=== PATIENT | male | born 1965 | race Two or more races ===

== ENCOUNTER 2017-05-28 23:49 | Inpatient (IN) | payer MEDICAID ==
[~2017-05-28] VITALS: Ht 170.2 cm; Wt 56.9 kg
[2017-05-28 22:20] VITALS: BP 105/63
[2017-05-29] MEDS ORDERED: HYDROcodone-ACET 10/325MG TAB PO PRN
[2017-05-29] MEDS ORDERED: NITROGLYCERIN 0.4 MG SL TAB SL PRN
[2017-05-29] MEDS ORDERED: DEXTROSE (50%) 50ML SYRG IV PRN
[2017-05-29] MEDS ORDERED: MORPHINE SULFATE 4 MG/ML SYR/VIAL IV PRN
[2017-05-29] MEDS ORDERED: METO25TA62 PO (00:16)
[2017-05-29] MEDS ORDERED: METF-370 PO (00:16)
[2017-05-29 01:05] VITALS: BP 105/63
[2017-05-29 01:09] LABS: Urine Bacteria NONE SEEN /hpf (None Seen); Urine Blood Negative /uL (Negative); Urine Specific Gravity 1.017 (1.001-1.035); Urine WBC 1 /hpf (0 - 3)
[2017-05-29 05:53] LABS: Basophils # (auto) 0 uL; Basophils % (auto) 0.3 % (0.0-2.0); Eosinophils # (auto) 0.1 uL; Eosinophils % (auto) 1.1 % (0.0-7.0); Hematocrit 36.6 % (41.0-53.0); Hemoglobin 12.4 g/dL (13.5-17.5); Lymphocytes # (auto) 1.6 uL; Lymphocytes % (auto) 30.2 % (10.0-50.0); Mean Corpuscular Hemoglobin 28.2 pg (28.0-32.0); Mean Corpuscular Volume 83.1 fL (80.0-100.0); Monocytes # (auto) 0.4 uL; Monocytes % (auto) 7.3 % (0.0-12.0); Neutrophils # (auto) 3.2 uL; Neutrophils % (auto) 61.1 % (37.0-80.0); Nucleated Red Blood Cells % 0.1 %; Platelet Count (auto) 187 10^3/uL (140-450); Red Cell Distribution Width 14.1 % (11.8-14.3); White Blood Cell 5.2 10^3/uL (4.4-10.8)
[2017-05-29 05:54] VITALS: BP 100/68
[2017-05-29 05:56] LABS: INR 0.97 (0.9-1.15); Partial Thromboplastin Time 29.2 sec (22.64-33.71); Prothrombin Time 10.6 sec (9.37-12.3)
[2017-05-29 06:07] LABS: Albumin 2.9 g/dL (3.4-5.0); BUN/Creatinine Ratio 21.1; Bilirubin, Total 0.4 mg/dL (0.2-1.0); Calcium 8.2 mg/dL (8.5-10.1); Potassium 4.5 mmol/L (3.5-5.1); Total Protein 7.1 g/dL (6.4-8.2)
[2017-05-29] MEDS: ACCU-CHEK COMFORT CURVE STRIP VI SCH ×4 (06:16→21:35)
[2017-05-29] MEDS: InsuLIN REG 1unit/0.01ml Soln (100units/ml) SC SCH ×4 (06:17→21:34)
[2017-05-29] MEDS: NICOTINE 21MG/24 HR TOPICAL PATCH TD SCH (09:30)
[2017-05-29] MEDS: ENOXAPARIN SOD 40 MG/0.4 ML SYRINGE SC SCH (09:31)
[2017-05-29] MEDS: OSELTAMIVIR 75 MG CAP PO SCH ×2 (09:31→21:24)
[2017-05-29] MEDS: ASCORBIC ACID 500 MG TAB PO SCH (09:32)
[2017-05-29 12:00] VITALS: BP 101/66
[2017-05-29] MEDS ORDERED: LIDOCAINE 2%HCL (LOCAL ANESTH.) INJ 20ML MDV ONE (12:52)
[2017-05-29] MEDS ORDERED: IOHEXOL 350 MG/ML 100ML IJ ONE (12:52)
[2017-05-29] MEDS ORDERED: ANGIOMAX 250 MG VIAL IV ONE (13:26)
[2017-05-29] MEDS ORDERED: fentaNYL CITRATE 100 MCG/2 ML VL ONE (13:26)
[2017-05-29] MEDS ORDERED: MIDAZOLAM HCL 1MG/1ML-2 ML VIAL ONE (13:26)
[2017-05-29 17:00] VITALS: BP 118/78
[2017-05-29] MEDS ORDERED: METOPROLOL SUCCINATE XL 50 MG TAB PO SCH (22:00)
[2017-05-29] MEDS ORDERED: ATORVASTATIN 20 MG TAB PO SCH (22:00)
[2017-05-29 22:10] VITALS: BP 104/67
[2017-05-30 05:15] VITALS: BP 111/73
[2017-05-30 06:34] LABS: Basophils # (auto) 0 uL; Basophils % (auto) 0.3 % (0.0-2.0); Eosinophils # (auto) 0.1 uL; Eosinophils % (auto) 1.4 % (0.0-7.0); Hematocrit 38.8 % (41.0-53.0); Hemoglobin 13.1 g/dL (13.5-17.5); Lymphocytes # (auto) 1.5 uL; Lymphocytes % (auto) 27.8 % (10.0-50.0); Mean Corpuscular Hemoglobin 27.9 pg (28.0-32.0); Mean Corpuscular Hgb Conc. 33.8 g/dL (32.0-36.0); Mean Corpuscular Volume 82.7 fL (80.0-100.0); Monocytes # (auto) 0.4 uL; Monocytes % (auto) 7.6 % (0.0-12.0); Neutrophils # (auto) 3.4 uL; Neutrophils % (auto) 62.9 % (37.0-80.0); Nucleated Red Blood Cells % 0.1 %; Platelet Count (auto) 247 10^3/uL (140-450); Red Blood Cells 4.69 10^6/uL (4.5-5.90); Red Cell Distribution Width 13.9 % (11.8-14.3); White Blood Cell 5.4 10^3/uL (4.4-10.8)
[2017-05-30 06:45] LABS: Calcium 8.6 mg/dL (8.5-10.1); Magnesium 2.2 mg/dL (1.6-2.6); Potassium 4.4 mmol/L (3.5-5.1)
[2017-05-30] MEDS: ACCU-CHEK COMFORT CURVE STRIP VI SCH ×2 (06:52→11:30)
[2017-05-30] MEDS: InsuLIN REG 1unit/0.01ml Soln (100units/ml) SC SCH ×2 (06:52→12:15)
[2017-05-30 08:30] VITALS: BP 102/66
[2017-05-30 08:40] VITALS: BP 102/66
[2017-05-30] MEDS: ENOXAPARIN SOD 40 MG/0.4 ML SYRINGE SC SCH (08:53)
[2017-05-30] MEDS: NICOTINE 21MG/24 HR TOPICAL PATCH TD SCH (08:53)
[2017-05-30] MEDS: ASCORBIC ACID 500 MG TAB PO SCH (08:53)
[2017-05-30] MEDS: OSELTAMIVIR 75 MG CAP PO SCH (08:53)
[2017-05-30 12:00] VITALS: BP 102/70
[2017-05-30 13:16] VITALS: BP 102/70
== END 2017-05-30 14:12 | disposition home or self-care (01) | DRG 192 ==
LOC: TELE-WESTW 23:49
PROVIDERS: ADMIT Nurse Practitioner Family; ATTEND Internal Medicine
PROC: 4A023N7 Measurement of Cardiac Sampling and Pressure, Left Heart, Percutaneous Approach (ICD-10-PCS; principal; 2017-05-29)
PROC: B2111ZZ Fluoroscopy of Multiple Coronary Arteries using Low Osmolar Contrast (ICD-10-PCS; 2017-05-29)
PROC: B2151ZZ Fluoroscopy of Left Heart using Low Osmolar Contrast (ICD-10-PCS; 2017-05-29)
PROC: B41F1ZZ Fluoroscopy of Right Lower Extremity Arteries using Low Osmolar Contrast (ICD-10-PCS; 2017-05-29)
DX: R07.89 Other chest pain (principal); E44.0 Moderate protein-calorie malnutrition; E11.9 Type 2 diabetes mellitus without complications; I10 Essential (primary) hypertension; E78.5 Hyperlipidemia, unspecified; G89.4 Chronic pain syndrome; Z87.891 Personal history of nicotine dependence
CPT/HCPCS: 93458; G0278; 36415; 71045; 80048; 80053; 80061; 81001; 82962; 83036; 83735; 85025; 85610; 85730; 86850; 86900; 86901; 87081; 87804; 93005; 99152; J1815; J2250

== ENCOUNTER 2022-05-21 06:41 | Day surgery (SDC) | payer OTHER ==
[2022-05-21] VITALS (7 sets, daily range): BP systolic 121–132; BP diastolic 75–85
[~2022-05-21] VITALS: Ht 170.2 cm; Wt 73.9 kg
[~2022-05-21 06:41] MED LIST: ASPI-543 PO; CHOL200031 PO; ESCI-28 PO; INSLANTI SC; METF-370 PO; METO25TA93 PO; PANT40T PO
[2022-05-21] MEDS ORDERED: LIDOCAINE 2%HCL (LOCAL ANESTH.) INJ 20ML MDV ONE (08:52)
[2022-05-21] MEDS ORDERED: IODIXANOL 320MG/ML 100ML BTL IV ONE ×2 (08:52→09:06)
[2022-05-21] MEDS ORDERED: ANGIOMAX 250 MG VIAL IV ONE (08:58)
[2022-05-21] MEDS ORDERED: SODIUM CHL 0.9% 0 ML ONE (08:59)
[2022-05-21] MEDS ORDERED: fentaNYL CITRATE 100 MCG/2 ML VL ONE (08:59)
[2022-05-21] MEDS ORDERED: MIDAZOLAM HCL 2MG/2ML 2ml VIAL (1mg/ml) ONE (08:59)
[2022-05-21] MEDS ORDERED: VERAPAMIL 2.5MG/ML INJ 2ML VIAL IV ONE (08:59)
[2022-05-21] MEDS ORDERED: HEPARIN SODIUM (PORCINE) 5000 UNITS/ML 1ML VIAL ONE (08:59)
== END 2022-05-21 12:10 | disposition home or self-care (01) ==
LOC: CATH 06:41
PROVIDERS: ATTEND Internal Medicine
DX: R94.39 Abnormal result of other cardiovascular function study (principal); I25.118 Atherosclerotic heart disease of native coronary artery with other forms of angina pectoris; I10 Essential (primary) hypertension; E11.9 Type 2 diabetes mellitus without complications; Z79.890 Hormone replacement therapy; Z79.899 Other long term (current) drug therapy; Z79.4 Long term (current) use of insulin; Z20.822 Contact with and (suspected) exposure to COVID-19
CPT/HCPCS: 93458; C1769; C1887; C1894; J1644; J2250; J3010; Q9967; U0003; 99152

== ENCOUNTER 2023-09-02 07:17 | Day surgery (SDC) | payer OTHER ==
[2023-08-28 12:36] LABS: Urine Bacteria None Seen /hpf (None Seen)
[2023-08-28 12:40] LABS: Basophils # (auto) 0 10 ^3/uL (0-0.2); Basophils % (auto) 0.7 % (0.0-2.0); Eosinophils # (auto) 0.3 10 ^3/uL (0-0.8); Eosinophils % (auto) 4.3 % (0.0-7.0); Hematocrit 44.4 % (41.0-53.0); Hemoglobin 14.7 g/dL (13.5-17.5); Lymphocytes # (auto) 1.6 10 ^3/uL (0.4-5.4); Lymphocytes % (auto) 26.1 % (10.0-50.0); Mean Corpuscular Hemoglobin 28.3 pg (28.0-32.0); Mean Corpuscular Hgb Conc. 33.1 g/dL (32.0-36.0); Mean Corpuscular Volume 85.5 fL (80.0-100.0); Monocytes # (auto) 0.4 10 ^3/uL (0-1.3); Monocytes % (auto) 6.6 % (0.0-12.0); Neutrophils # (auto) 3.9 10 ^3/uL (1.6-8.6); Neutrophils % (auto) 62.3 % (37.0-80.0); Red Blood Cells 5.19 10^6/uL (4.5-5.90); Red Cell Distribution Width 13.8 % (11.8-14.3); White Blood Cell 6.2 10^3/uL (4.4-10.8)
[2023-08-28 12:46] LABS: Urine Blood Negative /uL (Negative); Urine Clarity Clear (Clear); Urine Color Light-Yellow (Yellow); Urine Protein, UAD Negative (Negative); Urine Specific Gravity 1.027 (1.001-1.035); Urine Urobilinogen Normal (Negative); Urine WBC 1 /hpf (0 - 3); Urine pH 5.5 (5.0-9.0)
[2023-08-28 12:55] LABS: INR 1.03 (0.9-1.15); Partial Thromboplastin Time 25.6 SEC (24.5-34.5); Prothrombin Time 10.9 sec (9.3-11.8)
[2023-08-28 13:03] LABS: Alanine Aminotransferase 19 U/L (7-40); Albumin 3.8 g/dL (3.2-4.8); Alkaline Phosphatase 93 U/L (46-116); Anion Gap 5 (5-15); Aspartate Aminotransferase 18 U/L (13-40); Blood Urea Nitrogen 19 mg/dL (9-23); Calcium 9.6 mg/dL (8.5-10.1); Carbon Dioxide 27 mmol/L (20-30); Chloride 108 mmol/L (98-107); Glucose 99 mg/dL (74-106); Potassium 4.3 mmol/L (3.5-5.1); Sodium 140 mmol/L (136-145)
[2023-08-28 13:04] LABS: Bilirubin, Total 0.7 mg/dL (0.2-1.0); Total Protein 7.2 g/dL (5.7-8.2)
[~2023-09-02] VITALS: Ht 167.6 cm; Wt 81.6 kg
[~2023-09-02 07:17] MED LIST changes: +ASCO500T11 PO; +ATOR-507 PO; +EMPA1TAB PO; -ESCI-28 PO; +ESCI1TAB36 PO; +GABA-1250 PO; +INSU100I4 SC; +LOSA-534 PO
[2023-09-02] MEDS ORDERED: ceFAZolin 2 GM/D5W50ml 50 ML IV ONE (09:17)
[2023-09-02] MEDS ORDERED: ACETAMINOPHEN IV 100 ML IV ONE (10:36)
[2023-09-02] MEDS: InsuLIN REG 1unit/0.01ml Soln (100units/ml) ONE (10:38)
[2023-09-02] MEDS ORDERED: ROPIVACAINE 0.5% (5MG/ML) 20ML AMPULE IJ ONE (10:39)
[2023-09-02] MEDS ORDERED: ONDANSETRON HCL 4 MG/2 ML VIAL ONE (10:41)
[2023-09-02] MEDS ORDERED: ROCURONIUM 10MG/ML 10ML VIAL IV ONE (10:41)
[2023-09-02] MEDS ORDERED: DexAMETHasone SOD PHOS 10MG/1ML VIAL INJ ONE (10:41)
[2023-09-02] MEDS ORDERED: PROPOFOL 10 MG/ML 20 ML IV ONE (10:41)
[2023-09-02] MEDS ORDERED: fentaNYL CITRATE 100 MCG/2 ML VL ONE (10:41)
[2023-09-02] MEDS ORDERED: LIDOCAINE 1% INJ PF 5ML AMP ONE (10:42)
[2023-09-02] MEDS ORDERED: HYDROmorphone HCL 2 MG/ML VL/or syr IV PRN ×2 (10:45)
[2023-09-02] MEDS ORDERED: ePHEDrine SULFATE 50 MG/ML AMP IV PRN (10:45)
[2023-09-02] MEDS ORDERED: InsuLIN REG 1unit/0.01ml Soln (100units/ml) SC ONE (10:45)
[2023-09-02] MEDS ORDERED: ACCU-CHEK COMFORT CURVE STRIP VI ONE (10:45)
[2023-09-02] MEDS ORDERED: ONDANSETRON HCL 4 MG/2 ML VIAL IV ONE (10:45)
[2023-09-02] MEDS ORDERED: LABETALOL HCL 5 MG/ML 4ML SYRINGE IV PRN (10:45)
[2023-09-02] MEDS: ACETAMINOPHEN IV 1000 MG/100ML (10MG/ML) IV ONE (10:45)
[2023-09-02] MEDS ORDERED: BUPIVACAINE HCL 0.25% P/F 10 ML VIAL ONE (10:53)
[2023-09-02] MEDS ORDERED: EPINEPHrine HCL 1 MG/1 ML AMP ONE ×2 (10:53→12:24)
[2023-09-02] MEDS ORDERED: ePHEDrine SULFATE 50 MG/ML AMP ONE (11:47)
[2023-09-02] MEDS ORDERED: KETOROLAC TROMETH 30 MG/ML 1ML VIAL ONE (12:23)
[2023-09-02] MEDS ORDERED: SUGAMMADEX 200mg/2ml Vial (100MG/ML) IV ONE (12:25)
[2023-09-02 12:39] VITALS: TEMP 98.3; O2SAT 96
[2023-09-02] MEDS ORDERED: MIDAZOLAM HCL 2MG/2ML 2ml VIAL (1mg/ml) ONE (13:10)
[2023-09-02] MEDS: fentaNYL CITRATE 100 MCG/2 ML VL ONE (13:20)
[2023-09-02] MEDS: MIDAZOLAM HCL 2MG/2ML 2ml VIAL (1mg/ml) ONE (13:20)
[2023-09-02] MEDS ORDERED: fentaNYL CITRATE 100 MCG/2 ML VL IV ONE (14:00)
[2023-09-02] MEDS ORDERED: MIDAZOLAM HCL 2MG/2ML 2ml VIAL (1mg/ml) IV ONE (14:00)
[2023-09-02 14:20] VITALS: BP 127/81; PULSE 71; RESP 17; O2SAT 94
== END 2023-09-02 14:24 | disposition home or self-care (01) ==
LOC: SUR 07:17
PROVIDERS: ATTEND Orthopaedic Surgery
DX: M75.122 Complete rotator cuff tear or rupture of left shoulder, not specified as traumatic (principal); M75.102 Unspecified rotator cuff tear or rupture of left shoulder, not specified as traumatic; M75.22 Bicipital tendinitis, left shoulder; M75.42 Impingement syndrome of left shoulder; M19.012 Primary osteoarthritis, left shoulder; S43.432A Superior glenoid labrum lesion of left shoulder, initial encounter; S46.212A Strain of muscle, fascia and tendon of other parts of biceps, left arm, initial encounter; I10 Essential (primary) hypertension; K21.9 Gastro-esophageal reflux disease without esophagitis; Z79.899 Other long term (current) drug therapy; Z98.890 Other specified postprocedural states; Z79.82 Long term (current) use of aspirin; Z82.49 Family history of ischemic heart disease and other diseases of the circulatory system; Z87.891 Personal history of nicotine dependence; X58.XXXA Exposure to other specified factors, initial encounter; Y93.89 Activity, other specified; Y92.89 Other specified places as the place of occurrence of the external cause; Y99.8 Other external cause status
CPT/HCPCS: 29806; 29824; 29826; 29827; 29828; 36415; 80053; 81001; 82962; 85025; 85610; 85730; 93005; C1713; C1763; J0131; J0171; J0690; J1100; J1815; J1885; J2250; J2405; J2704; J2795; J3010; A4565; J3490

== ENCOUNTER 2024-12-23 07:14 | Day surgery (SDC) | payer MEDICAID ==
[2024-12-23] VITALS (7 sets, daily range): BP systolic 116–127; BP diastolic 70–79; PULSE 67–80; RESP 12–20; O2SAT 94–96
[~2024-12-23] VITALS: Ht 167.6 cm; Wt 79.4 kg
[~2024-12-23 07:14] MED LIST changes: +SEMA2INJ3 SC
[2024-12-23] MEDS: IODIXANOL 320MG/ML 100ML BTL IV ONE (14:10)
[2024-12-23] MEDS: ANGIOMAX 250 MG VIAL IV ONE (14:12)
[2024-12-23] MEDS: VERAPAMIL 2.5MG/ML INJ 2ML VIAL IV ONE (14:12)
[2024-12-23] MEDS: HEPARIN SODIUM (PORCINE) 5000 UNITS/ML 1ML VIAL ONE (14:12)
[2024-12-23] MEDS: fentaNYL CITRATE 100 MCG/2 ML VL ONE (14:12)
[2024-12-23] MEDS: LIDOCAINE 2%HCL (LOCAL ANESTH.) INJ 20ML MDV ONE (14:13)
[2024-12-23] MEDS: MIDAZOLAM HCL 2MG/2ML 2ml VIAL (1mg/ml) ONE (14:13)
--- NOTE | 2024-12-23 14:46 | DVHOP2 ---
Operative Report - 2 Report Details Date: 12/23/24 Preop Diagnosis: Chest pain/CAD Postop Diagnosis: No significant CAD Surgeon: Robin Mulligan MD Anesthesiologist: Conscious sedation Anesthesia: Mac, Local Consent: The patient was informed of the risks and benefits of the procedure. These include but are not limited to complications of anesthesia, postoperative infection, incomplete relief of symptoms, recurrence of symptoms, damage to blood vessels, nerves and tendons, deep venous thrombosis, pulmonary embolism and possible need for repeat surgery in the future. Complications: No complications Findings: Normal coronaries Indications for Surgery: Abnormal stress test chest pain Name of Procedure Performed Left heart catheterization bilateral cine coronary angiography. Left ventriculography Procedure Details Procedure Details: Prior local anesthesia with 2% lidocaine to the right wrist and full informed consent obtained fluoroscopic and ultrasound guidance the radial artery was located in the six [place] sheath placed. A multipurpose catheter was used to perform ventriculography and cannulation of both right and left coronary ostia without complications. Hemodynamics: Aortic blood pressure was 130/70 with a end-diastolic pressure was 10. There was no gradient across the aortic valve on pullback. Coronary anatomy: The RCA is a large vessel is normal in its proximal mid and distal segments. The PDA in the posterolateral branches are normal. Left main is large and normal. No sign of the left anterior descending coronary artery is large with two diagonals free of significant disease. The circumflex is a large vessel with two obtuse marginals free of significant disease. Ventriculography in the BRICE projection shows an EF of 55% with no wall motion abnormalities. Impression: Normal left ventricular end-diastolic pressure at rest. Normal ejection fraction. No significant CAD. Recommendations: Medical therapy is warranted continue with risk factor modification. Condition Good Disposition Home Date of Service: Dec 23, 2024 Cardiology Common Codes: 75056-ZWOUZIK INP/OBS CARE (High) Cardiology Procedure Codes: 10350-AZUJ HEART CATH W/INTRA INJ ROBIN MULLIGAN Sr., MD Dec 23, 2024 14:46
== END 2024-12-23 17:05 | disposition home or self-care (01) ==
LOC: CATH 07:14
PROVIDERS: ATTEND Internal Medicine
DX: R07.9 Chest pain, unspecified (principal); I25.10 Atherosclerotic heart disease of native coronary artery without angina pectoris; R94.39 Abnormal result of other cardiovascular function study; R06.02 Shortness of breath; I49.9 Cardiac arrhythmia, unspecified
CPT/HCPCS: 93458; C1894; J1644; J2250; J3010; Q9967; 99152